=== PATIENT | male | born 1990 | race Caucasian/White ===

== ENCOUNTER 2024-07-12 13:58 | Inpatient (IN) ==
[2024-07-12] MEDS: 0.9 % SODIUM CHLORIDE 1,000 ML IV ONE (15:23)
[2024-07-12] MEDS ORDERED: ONDANSETRON 4 MG/2 ML VIAL IV PRN (16:12)
[2024-07-12] MEDS ORDERED: traZODone HCL 50 MG TABLET PO PRN (16:12)
[2024-07-12] MEDS ORDERED: IPRATROPIUM/ALBUTEROL 3 ML AMPUL.NEB NEB PRN (16:12)
[2024-07-12] MEDS: cefTRIAXone 2 GM in DEXTROSE 5% IN WATER 50 ML IV SCH (17:36)
[2024-07-12] MEDS: 0.9 % SODIUM CHLORIDE 1,000 ML IV SCH (17:36)
[2024-07-12] MEDS: SODIUM CHLORIDE 154 MEQ in WATER FOR INJECTION,STERILE 961.5 ML IV SCH (18:09)
[2024-07-12] MEDS: ACETAMINOPHEN 325 MG TABLET PO PRN (21:05)
[2024-07-12] MEDS: SENNOSIDES 1 TABLET PO SCH (21:06)
[2024-07-12] MEDS: DOCUSATE SODIUM 100 MG CAPSULE PO SCH (21:06)
[2024-07-12] MEDS: 0.9 % SODIUM CHLORIDE 10 ML SYRINGE IV SCH (21:06)
[2024-07-13 06:59] LABS: ALT/SGPT 24 U/L (<40); AST/SGOT 33 U/L (<40); Albumin 3.3 gm/dL (3.2-5.2); Albumin/Globulin Ratio 1.2 (1.0-2.3); Alkaline Phosphatase 206 U/L (39-117); Bilirubin,Total 1.1 mg/dL (0.1-1.0); Blood Urea Nitrogen 14 mg/dL (6-20); Calcium 7.9 mg/dL (8.6-10.4); Carbon Dioxide 23 mmol/L (22-30); Chloride 99 mmol/L (96-108); Globulin 2.8 gm/dL (2.2-3.7); Glomerular Filtration Rate 115; Glucose 106 mg/dL (70-105); Potassium 3.6 mmol/L (3.3-5.1); Sodium 135 mmol/L (133-145)
[2024-07-13 07:00] LABS: Amphetamine Screen,Urine Suspect positive; Barbiturate Screen,Urine None detected; Benzodiazepines Screen,Urine Suspect positive; Cannabinoid Screen,Urine None detected; Cocaine Screen,Urine None detected; Fentanyl, Urine Screen None Detected; Opiate Screen,Urine None detected; Oxycodone, Urine Screen None detected; Phencyclidine Screen,Urine None detected
[2024-07-13 07:43] LABS: Basophils # (Auto) 0.03 K/mcL (0.00-0.30); Basophils % (Auto) 0.3 % (0.0-2.0); Eosinophils # (Auto) 0.05 K/mcL (0.00-0.70); Eosinophils % (Auto) 0.5 % (0.0-7.0); Hematocrit 30.5 % (40.1-51.0); Hemoglobin 9.6 g/dL (13.7-17.5); Lymphocytes # (Auto) 1.66 K/mcL (1.50-4.80); Lymphocytes % (Auto) 16.9 % (15.5-49.0); Mean Cell Volume 94.4 fL (80.0-100.0); Mean Corpuscular HGB Conc 31.5 g/dL (31.0-36.0); Mean Platelet Volume 9.7 fL (8.8-12.5); Monocytes # (Auto) 1.58 K/mcL (0.10-0.90); Monocytes % (Auto) 16.1 % (1.0-12.0); Neutrophils % (Auto) 65.9 % (38.0-78.0); Platelet Count 180 K/mcL (140-440); RBC 3.23 M/mcL (4.63-6.08); Red Cell Distribution Width 13.5 % (11.5-14.5); WBC 9.8 K/mcL (4.5-11.0)
[2024-07-13] MEDS: ENOXAPARIN 40 MG/0.4 ML SYRINGE SQ SCH (08:05)
[2024-07-13] MEDS: cefTRIAXone 2 GM in DEXTROSE 5% IN WATER 50 ML IV SCH (08:07)
[2024-07-14 07:19] LABS: Basophils # (Auto) 0.03 K/mcL (0.00-0.30); Basophils % (Auto) 0.4 % (0.0-2.0); Eosinophils # (Auto) 0.09 K/mcL (0.00-0.70); Eosinophils % (Auto) 1.1 % (0.0-7.0); Hematocrit 31.1 % (40.1-51.0); Hemoglobin 9.7 g/dL (13.7-17.5); Lymphocytes # (Auto) 1.53 K/mcL (1.50-4.80); Lymphocytes % (Auto) 18.4 % (15.5-49.0); Mean Cell Volume 94.8 fL (80.0-100.0); Mean Corpuscular HGB Conc 31.2 g/dL (31.0-36.0); Mean Platelet Volume 9.8 fL (8.8-12.5); Monocytes # (Auto) 0.76 K/mcL (0.10-0.90); Monocytes % (Auto) 9.1 % (1.0-12.0); Neutrophils % (Auto) 70.4 % (38.0-78.0); Platelet Count 218 K/mcL (140-440); RBC 3.28 M/mcL (4.63-6.08); Red Cell Distribution Width 13.5 % (11.5-14.5); WBC 8.3 K/mcL (4.5-11.0)
[2024-07-14 08:08] LABS: Blood Urea Nitrogen 11 mg/dL (6-20); Carbon Dioxide 25 mmol/L (22-30); Chloride 103 mmol/L (96-108); Glomerular Filtration Rate 121; Glucose 101 mg/dL (70-105); Potassium 3.8 mmol/L (3.3-5.1); Sodium 138 mmol/L (133-145)
[2024-07-14] MEDS: CALCIUM W/VIT D3 500 MG TABLET PO SCH (08:58)
[2024-07-15 06:03] LABS: Basophils # (Auto) 0.03 K/mcL (0.00-0.30); Basophils % (Auto) 0.6 % (0.0-2.0); Eosinophils # (Auto) 0.13 K/mcL (0.00-0.70); Eosinophils % (Auto) 2.5 % (0.0-7.0); Hematocrit 27.5 % (40.1-51.0); Hemoglobin 8.6 g/dL (13.7-17.5); Lymphocytes # (Auto) 1.27 K/mcL (1.50-4.80); Lymphocytes % (Auto) 24.6 % (15.5-49.0); Mean Cell Volume 93.9 fL (80.0-100.0); Mean Corpuscular HGB Conc 31.3 g/dL (31.0-36.0); Mean Platelet Volume 9.7 fL (8.8-12.5); Monocytes # (Auto) 0.46 K/mcL (0.10-0.90); Monocytes % (Auto) 8.9 % (1.0-12.0); Neutrophils % (Auto) 61.3 % (38.0-78.0); Platelet Count 231 K/mcL (140-440); RBC 2.93 M/mcL (4.63-6.08); Red Cell Distribution Width 13.6 % (11.5-14.5); WBC 5.2 K/mcL (4.5-11.0)
[2024-07-15 06:36] LABS: Blood Urea Nitrogen 10 mg/dL (6-20); Carbon Dioxide 25 mmol/L (22-30); Chloride 105 mmol/L (96-108); Glomerular Filtration Rate 129; Glucose 95 mg/dL (70-105); Potassium 4.1 mmol/L (3.3-5.1); Sodium 138 mmol/L (133-145)
[2024-07-16 06:45] LABS: Basophils # (Auto) 0.04 K/mcL (0.00-0.30); Basophils % (Auto) 0.5 % (0.0-2.0); Eosinophils # (Auto) 0.15 K/mcL (0.00-0.70); Hematocrit 30.3 % (40.1-51.0); Hemoglobin 9.7 g/dL (13.7-17.5); Lymphocytes # (Auto) 1.29 K/mcL (1.50-4.80); Lymphocytes % (Auto) 16.9 % (15.5-49.0); Mean Cell Volume 91.5 fL (80.0-100.0); Mean Platelet Volume 9.4 fL (8.8-12.5); Monocytes # (Auto) 0.52 K/mcL (0.10-0.90); Monocytes % (Auto) 6.8 % (1.0-12.0); Neutrophils % (Auto) 71.7 % (38.0-78.0); Platelet Count 347 K/mcL (140-440); RBC 3.31 M/mcL (4.63-6.08); Red Cell Distribution Width 13.2 % (11.5-14.5); WBC 7.6 K/mcL (4.5-11.0)
[2024-07-16 06:52] LABS: Blood Urea Nitrogen 9 mg/dL (6-20); Carbon Dioxide 27 mmol/L (22-30); Chloride 103 mmol/L (96-108); Glomerular Filtration Rate 129; Glucose 99 mg/dL (70-105); Potassium 3.9 mmol/L (3.3-5.1); Sodium 140 mmol/L (133-145)
[2024-07-20 07:12] LABS: Alprazolam, Urine Negative (Cutoff=100); Amphetamine Screen Positive; Clonazepam, Urine Negative (Cutoff=100); Flurazepam, Urine Negative (Cutoff=100); Lorazepam Confirm, Urine 907 ng/mL (Cutoff=100); Lorazepam, Urine Positive; Midazolam, Urine Negative (Cutoff=100); Nordiazepam, Urine Negative (Cutoff=100); Oxazepam, Urine Negative (Cutoff=100); Temazepam, Urine Negative (Cutoff=100); Triazolam, Urine Negative (Cutoff=100)
== END 2024-07-16 11:42 | disposition home or self-care (01) | DRG 690 ==
LOC: ED 13:58 → MEDSUR 16:07
PROVIDERS: ADMIT Internal Medicine; ATTEND Internal Medicine